=== PATIENT | female | born 1965 | race Caucasian/White ===

== ENCOUNTER 2021-03-23 21:54 | Emergency (ER) | payer OTHER ==
[~2021-03-23 21:54] MED LIST: CIPRO500 MG PO; COZAAR50 MG PO; CYCLOBENZAPRINE10 MG PO; HCTZ12.5 MG PO; IBUPROFEN800 MG PO; MEDROL 4MG DOSEP4 MG PO; NEXIUM 40MG CAP40 MG PO; NORCO 5-325 TA1 EACH PO; PERCOCET 5-3251 EACH PO; PHENERGAN25 M1 PO; ZOFRAN8 MG PO
[2021-03-23] MEDS ORDERED: NORCO 5-325 TA1 EACH PO (23:52)
[2021-03-23] MEDS ORDERED: NAPROXEN500 MG PO (23:52)
== END 2021-03-24 01:00 | disposition home or self-care (01) ==
LOC: FER 21:54
DX: S93.411A Sprain of calcaneofibular ligament of right ankle, initial encounter (principal); S93.491A Sprain of other ligament of right ankle, initial encounter; W01.0XXA Fall on same level from slipping, tripping and stumbling without subsequent striking against object, initial encounter; Y92.009 Unspecified place in unspecified non-institutional (private) residence as the place of occurrence of the external cause
CPT/HCPCS: 73610